=== PATIENT | male | born 1960 | race Caucasian/White ===

== ENCOUNTER 2019-06-29 16:34 | Emergency (ER) | payer OTHER ==
[~2019-06-29] VITALS: Ht 177.8 cm; Wt 99.8 kg
[~2019-06-29 16:34] MED LIST: PHENERGAN 25 MG25 MG PO; PRINIVIL10 MG PO; VICODIN 5-5001 EACH PO
[2019-06-29] MEDS ORDERED: B COMPLEX1 EACH PO (16:41)
[2019-06-29] MEDS ORDERED: CENTRUM SILVER1 EAC2 PO (16:41)
[2019-06-29 17:12] LABS: ABSOLUTE EOSINOPHILS 0.1 thou/uL (0.0-0.7); ABSOLUTE LYMPHOCYTES 1.3 thou/uL (0.8-5.3); ABSOLUTE MONOCYTES 0.5 thou/uL (0.0-1.2); ABSOLUTE NEUTROPHILS 3.6 thou/uL (1.6-8.1); BASOPHILS 0.6 %; EOSINOPHILS 1.7 %; HEMATOCRIT 44.4 % (42.0-52.0); HEMOGLOBIN 15.4 gm/dL (14.0-18.0); LYMPHOCYTES 23.7 %; MCH 30.4 pg (26.0-34.0); MCHC 34.8 g/dL (28.0-37.0); MCV 87.2 fL (80.0-100.0); MONOCYTES 8.3 %; MPV 7.2 fl. (7.2-11.1); NUCLEATED RBCS 0 /100WBC; PLATELET COUNT* 174 thou/uL (150-400); POLYS 65.7 %; RBC 5.09 mil/uL (4.50-6.00); RDW-CV 12.9 % (10.5-14.5); WBC 5.5 thou/uL (4.0-11.0)
[2019-06-29 17:24] LABS: ANION GAP 11 mmol/L (7-16); BUN 18 mg/dL (7-18); CALCIUM 8.5 mg/dL (8.5-10.1); CHLORIDE 106 mmol/L (98-107); CO2 24 mmol/L (21-32); GLUCOSE 132 mg/dL (70-99); POTASSIUM 3.5 mmol/L (3.5-5.1); SODIUM 141 mmol/L (136-145)
[2019-06-29 17:26] LABS: APTT 21.8 Seconds (25.0-31.3); INR 1.1; PROTIME 11.2 Seconds (9.20-11.50)
[2019-06-29 17:38] LABS: ALBUMIN 3.7 g/dL (3.4-5.0); ALKALINE PHOSPHATASE 51 U/L (46-116); CK-MB MASS 2.4 ng/mL (<0.5-3.6); LIPASE 307 U/L (73-393); MAGNESIUM 1.6 mg/dL (1.8-2.4); NT-PRO BRAIN NAT PEPTIDE 21 pg/mL (<300); SGOT 24 U/L (15-37); SGPT 40 U/L (30-65); TOTAL BILIRUBIN 0.4 mg/dL (<0.1-1.0); TROPONIN-I LEVEL <0.06 ng/mL (<0.06)
[2019-06-29] MEDS ORDERED: ACIPHEX 20 MG T20 MG PO (18:12)
[2019-06-29] MEDS ORDERED: ZOFRAN ODT4 MG PO (18:13)
[2019-06-29 18:15] VITALS: BP 134/83
--- NOTE | 2019-06-30 09:45 | EKG ---
[place] [address] ELECTROCARDIOGRAM REPORT Name: JARETT BROWN [id number] Admission: 06/29/19 Attend Phys: Discharge: 06/29/19 Date of : 60 Report #: [id number] THIS REPORT FOR: //name// [facility] ED Test Date: 2019-06-29 Test Time: 16:38:10 Pat Name: JARETT BROWN Department: Room: Gender: M [employer]: : 1960 Requested By: Osmany Parra Order Number: [id number] MD: Ascencion Avila Measurements Intervals [place] Rate: 78 P: 60 PA: 179 QRS: 48 QRSD: 96 T: 27 QT: 381 QTc: 434 Interpretive Statements Sinus rhythm Probable left atrial enlargement No previous ECG available for comparison Electronically Signed On 06-30-2019 9:45:09 CDT by Ascencion Avila [email or web address] <ELECTRONICALLY SIGNED> By: Ascencion Avila MD, [facility] 06/30/19 0945 [id number] [id number] Ascencion Avila MD, FACC /EPI
== END 2019-06-29 18:19 | disposition home or self-care (01) ==
LOC: M.ERS 16:34
PROVIDERS: Emergency Medicine
DX: K21.9 Gastro-esophageal reflux disease without esophagitis (principal); R61 Generalized hyperhidrosis; I10 Essential (primary) hypertension; E78.00 Pure hypercholesterolemia, unspecified